=== PATIENT | female | born 1945 | race Caucasian/White ===

== ENCOUNTER 2017-01-02 07:48 | Day surgery (SDC) | payer MEDICARE ==
--- NOTE | 2016-12-29 10:43 | HISTORY AND PHYSICAL E ---
History and Physical NAME: IRINA ETIENNE : 1945 AGE: 71Y ADMITTED: 01/02/2017 ROOM: CHIEF COMPLAINT: Reflux. HISTORY: Patient is known to us. Colonoscopy in 2014, showed benign polyp, sigmoid. Patient has hyperplastic benign polyp. Gallbladder ultrasound negative. The patient presented at this time regarding upper endoscopy. The patient did have upper scope, 2016, showed gastritis, esophagitis, benign-looking gastric polyp. The patient did have exacerbation of abdominal bloating and she has hunger pains. She is doing well with Dexilant. We discussed regarding if she absolutely needed or not, but she is unable to stop her PPI because she has severe exacerbation of reflux. The patient is being evaluated regarding persistent reflux, abdominal discomfort and bloating, and history of gastric polyps. PAST SURGICAL HISTORY: 1. Patient did have right mastectomy. 2. Right lumpectomy. 3. Hysterectomy. 4. Ovariectomy. 5. Appendectomy. MEDICATIONS: The patient's medications are: 1. The patient takes Dexilant. 2. She takes Lipitor. 3. Lasix. 4. Tramadol. 5. At times, Mobic. SOCIAL HISTORY: She does not smoke. She drinks socially. FAMILY HISTORY: Father had small intestine disease. Her mom with COPD. ALLERGIES: She is allergic to: 1. PREDNISONE. 2. MORPHINE. 3. CODEINE. 4. DARVON. 5. ADHESIVE TAPE. REVIEW OF SYSTEMS: CARDIAC: High cholesterol. ENDOCRINE: Negative. PSYCHIATRIC: Anxiety. PHYSICAL EXAMINATION: VITAL SIGNS: Blood pressure 140/90, pulse 80, respirations 18, temp is 98. HEAD, EYES, EARS, NOSE, THROAT: Normal. ABDOMEN: Soft. NEUROLOGIC: Exam negative. CONCLUSION: 1. Abdominal pain. 2. History of gastric polyps. 3. Reflux. PLAN: Upper endoscopy. Admit 01/02. DICTATING PHYSICIAN: MAURI BRAMBILA M.D. [id number] PHY#: [id number] ID: [id number] JOB#: [id number] ACCT: [id number] cc:Primo BYRNES M.D. THERESA GILLE, M.D. >
[~2017-01-02 07:48] MED LIST: EPINEPHRINE INJ 1 MG/10 ML DISP.SYRIN ONE; FENTANYL CITRATE INJ/PF 100 MCG/2 ML AMPUL ONE; FLUMAZENIL INJ 0.5 MG/5 ML VIAL IV ONE; GLYCOPYRROLATE INJ 0.4 MG/2 ML VIAL ONE; NALOXONE HCL INJ/PF 0.4 MG/1 ML SDV ONE; ONDANSETRON HCL INJ/PF 4 MG/2 ML SDV ONE
[2017-01-02] MEDS: MIDAZOLAM 2 MG/2 ML INJ ONE ×2 (08:25→08:30)
[2017-01-02] MEDS ORDERED: DIPHENHYDRAMINE HCL 50 MG/ML VIAL ONE (09:15)
--- NOTE | 2017-01-02 09:21 | DISCHARGE SUMMARY E ---
Discharge Summary NAME: IRINA ETIENNE : 1945 AGE: 71Y ADMITTED: 01/02/2017 DISCHARGED: 01/02/2017 HISTORY: A 71-year-old female with exacerbation of reflux. History of gastric polyps. Upper endoscopy today shows no malignancy. No ulcers. Multiple benign looking gastric polyps. DISCHARGE PLAN: Awaiting biopsy. Continue present management. Continue to hold Mobic, nonsteroidal, for 5 days. Continue PPI. FINAL DIAGNOSES: 1. Gastric polyps. 2. Mild esophagitis. Patient did have colonoscopy showing no adenoma polyps. DICTATING PHYSICIAN: MAURI BRAMBILA M.D. [id number] PHY#: [id number] ID: [id number] JOB#: [id number] ACCT: [id number] cc:Primo KRISHNA M.D. >
--- NOTE | 2017-01-02 09:21 | OPERATIVE REPORT E ---
Operative Report NAME: IRINA ETIENNE : 1945 AGE: 71Y DATE OF SURGERY: 01/02/2017 ROOM: PREOPERATIVE DIAGNOSIS: Reflux. POSTOPERATIVE DIAGNOSES: 1. Esophagitis, mild. 2. Benign gastric polyps. 3. Mild gastritis. PROCEDURES: 1. Esophagoscopy. 2. Gastroscopy. 3. Duodenoscopy. SURGEON: MAURI BRMABILA M.D. ANESTHESIA: Versed 2 and fentanyl 50. TISSUE REMOVED OR ALTERED: Gastric biopsy. DESCRIPTION OF PROCEDURE: Baby scope passed under guided vision. No difficulties. Esophagoscopy junction at 34 cm. No stricture. No hernia. Mild esophagitis. Gastroscopy: No ulcers. Multiple benign looking gastric polyps. Biopsy obtained. Mild gastritis. Duodenoscopy: No polyps. No malignancy. No ulcers. Mild duodenitis. PLAN: Awaiting biopsy. Continue PPI. Followup office visit in the next few days. DICTATING PHYSICIAN: MAURI BRAMBILA M.D. [id number] [facility]#: [id number] ID: [id number] JOB#: [id number] ACCT: [id number] cc:Primo KRISHNA M.D. >
[2017-01-02 10:33] VITALS: BP 126/74
== END 2017-01-02 09:55 | disposition home or self-care (01) ==
LOC: END 07:48
PROVIDERS: ATTEND Specialist
PROC: 0DB68ZX Excision of Stomach, Via Natural or Artificial Opening Endoscopic, Diagnostic (ICD-10-PCS; principal; 2017-01-02 08:00)
DX: K21.0 Gastro-esophageal reflux disease with esophagitis (principal); K29.50 Unspecified chronic gastritis without bleeding; K31.7 Polyp of stomach and duodenum; K29.80 Duodenitis without bleeding; E78.00 Pure hypercholesterolemia, unspecified; Z79.899 Other long term (current) drug therapy; Z79.1 Long term (current) use of non-steroidal anti-inflammatories (NSAID); Z79.891 Long term (current) use of opiate analgesic; Z88.8 Allergy status to other drugs, medicaments and biological substances; Z88.5 Allergy status to narcotic agent
CPT/HCPCS: 43239; 88342 ×2; 88305 ×2; J2250; J3010; J2405; J0171; J1200; J2310; J3490

== ENCOUNTER → 2017-01-09 | Outpatient (CLI) | payer MEDICARE | LOC: OD 14:03 | PROVIDERS: ATTEND Specialist | DX: C25.0 Malignant neoplasm of head of pancreas (principal); R10.9 Unspecified abdominal pain | CPT/HCPCS: 36415; 86301 ==

== ENCOUNTER → 2018-06-11 | Outpatient (CLI) | payer MEDICARE ==
[~2018-06-11] MED LIST changes: +BUPIVACAINE HCL 0.5 % INJ/PF 30 ML SDV ONE; -EPINEPHRINE INJ 1 MG/10 ML DISP.SYRIN ONE; -FENTANYL CITRATE INJ/PF 100 MCG/2 ML AMPUL ONE; -FLUMAZENIL INJ 0.5 MG/5 ML VIAL IV ONE; -GLYCOPYRROLATE INJ 0.4 MG/2 ML VIAL ONE; +LIDOCAINE 1% INJ-PF (10 MG/ML) 30 ML SDV ONE; +METHYLPREDNISOLONE ACETATE INJ 40 MG/1 ML ML ONE; -NALOXONE HCL INJ/PF 0.4 MG/1 ML SDV ONE; -ONDANSETRON HCL INJ/PF 4 MG/2 ML SDV ONE
--- NOTE | 2018-06-11 16:16 | OPERATIVE REPORT E ---
Operative Report NAME: IRINA ETIENNE : 1945 AGE: 72Y DATE OF SURGERY: 06/11/2018 ROOM: PREOPERATIVE DIAGNOSIS: Lumbar spondylosis with intractable back pain. POSTOPERATIVE DIAGNOSIS: Lumbar spondylosis with intractable back pain. OPERATION: Cold RF radiofrequency ablation at the right and left L5 and sacral ala levels under fluoroscopic guidance. INDICATION: Positive relief to local anesthetic blockade of the same regions on an outpatient basis. COMPLICATIONS: None. ESTIMATED BLOOD LOSS: Minimal. SURGEON: FRANCOISE GUILLERMO M.D. ANESTHESIA: Local. SPECIMENS: None. PROCEDURE: After obtaining informed consent advising the patient of the risks and benefits including serious neurological issues, bleeding, infection, allergic reaction, aggravation of pain, paralysis, and , she was taken to the procedural suite and placed comfortably in the prone position. She was prepped with chlorhexidine followed by appropriate draping of the desired region. She was evaluated under fluoroscopy, and a suitable entrance site beginning on the right was identified for the L5 and SA approaches. 1% lidocaine skin wheals were placed, followed by deeper instillation of the same. A small incision was made in the skin at the selected regions. The trocars were placed down to the junction of the transverse process of L5 and the superior articulating surface in the sacral ala. The stylettes were placed within the trocars. Testing for motor and sensory was performed. This was satisfactory. Local anesthetic was then given, and this was 0.5% bupivacaine 1 mL per needle. After an appropriate waiting period, RF lesioning was initiated at 60 degrees for 2 minutes 30 seconds. While these lesions were being performed, the setup was proceeded with on the left. Fluoroscopy was used. Suitable entrance sites were identified. Local anesthesia was placed above the L5 transverse process and the sacral ala. Small incisions were made. The RF trocars were placed down to the junction of the L5 transverse process in the superior articulating surface, as well as the sacral ala in the superior articulating surface. When the lesion was completed on the right, 20 mg of Depo-Medrol was instilled into each needle and flushed with 0.5 mL of 0.5% bupivacaine. The RF probes were then placed in the trocars on the left. All instrumentation was removed on the right. Lesioning was then initiated following testing, with motor and sensory which was satisfactory, and local anesthetic application as described above. Once the lesions were completed, steroids were again administered. Again, they were flushed in with 0.5 mL of 0.5% bupivacaine. All instrumentation was then removed. The region was cleansed. Sterile dressings were applied. The patient became slightly vasovagal upon sitting. She was placed back into the left lateral decubitus position. DICTATING PHYSICIAN: FRANCOISE GUILLERMO M.D. [id number] PHY#: [id number] ID: [id number] JOB#: [id number] ACCT: [id number] cc:FRANCOISE GUILLERMO M.D. >
== END ==
LOC: RAD 14:25
PROVIDERS: ATTEND Pain Medicine Interventional Pain Medicine
DX: M47.816 Spondylosis without myelopathy or radiculopathy, lumbar region (principal)
CPT/HCPCS: 64635; 64636; J3490 ×2; J1020

== ENCOUNTER → 2018-08-02 | Outpatient (CLI) | payer MEDICARE | LOC: RAD 11:15 | PROVIDERS: ATTEND Orthopaedic Surgery | DX: M25.561 Pain in right knee (principal) | CPT/HCPCS: 78315; A9561; Q9969 ==